=== PATIENT | female | born 1950 | race Caucasian/White ===

== ENCOUNTER 2018-02-28 14:10 | Inpatient (IN) | payer MEDICARE ==
[~2018-02-28] VITALS: Ht 160 cm; Wt 67.8 kg
[2018-02-28] MEDS ORDERED: GABA-533 PO (14:37)
[2018-02-28] MEDS ORDERED: CIPR-278 PO (14:37)
[2018-02-28] MEDS ORDERED: ATEN50TA PO (14:37)
[2018-02-28 14:40] LABS: BASOPHILS % (AUTO) 0.9 % (0.0-2.0); EOSINOPHILS % (AUTO) 1.8 % (1.0-6.0); HEMATOCRIT 44.8 % (36-46); HEMOGLOBIN 15.7 g/dL (12.0-16.0); LYMPHOCYTES % (AUTO) 35.2 % (22.0-44.0); MEAN CORPUSCULAR HEMOGLOBIN 29.7 pg (26.0-34.0); MEAN CORPUSCULAR VOLUME 85 fL (80-100); MONOCYTES # (AUTO) 0.4 K/uL (0.1-1.0); NEUTROPHILS # (AUTO) 4.8 K/uL (1.8-7.7); NEUTROPHILS % (AUTO) 57.1 % (40.0-70.0); PLATELET COUNT (AUTO) 366 K/uL (150-450); RED BLOOD CELL COUNT(AUTO) 5.29 MIL/uL (4.00-5.20); RED CELL DISTRIBUTION WIDTH 15.1 % (11.5-14.5)
[2018-02-28 14:43] LABS: GLUCOSE,POINT OF CARE 178 MG/DL (70-110)
[2018-02-28 14:47] LABS: ANION GAP 12 mmol/L (8-16); CALCIUM, TOTAL 9.8 mg/dL (8.8-10.5); CARBON DIOXIDE 25 mmol/L (22-29); CHLORIDE 101 mmol/L (98-107); CREATININE 1.03 mg/dL (0.60-1.30); GLOMERULAR FILTR. RATE CALC 53 mL/min (>60); GLUCOSE,RANDOM 181 mg/dL (70-110); POTASSIUM 3.2 mmol/L (3.5-5.1); SODIUM SERUM 138 mmol/L (136-145); UREA NITROGEN, BLOOD 15 mg/dL (7-18)
[2018-02-28 15:02] LABS: ALANINE AMINOTRANSFERASE 43 U/L (12-78); ALBUMIN 4.5 g/dL (3.4-5.0); ALKALINE PHOSPHATASE 211 U/L (46-116); ASPARTATE AMINOTRANSFERASE 18 U/L (15-37); BILIRUBIN,TOTAL 0.6 mg/dL (0.1-1.0)
[2018-02-28] MEDS ORDERED: POTASSIUM CHLORIDE 20 MEQ ER TABLET PO ONE (17:45)
[2018-02-28] MEDS ORDERED: IBUPROFEN 800 MG TABLET PO ONE (17:45)
[2018-02-28] MEDS ORDERED: LORazepam 1 MG TABLET PO ONE (18:45)
[2018-02-28] MEDS ORDERED: ZOLPIDEM TARTRATE 10 MG TABLET PO PRN (19:15)
[2018-02-28] MEDS ORDERED: HALOPERIDOL 5 MG TABLET PO PRN (19:15)
[2018-02-28 19:41] LABS: CHOL/HDL RATIO 10.2 (3.9-5.7); CHOLESTEROL 367 mg/dL (131-200); HDL CHOLESTEROL 36 mg/dL (40-60); TRIGLYCERIDES 545 mg/dL (15-150)
[2018-02-28 20:57] LABS: APPEARANCE,URINE CLOUDY (CLEAR); BILIRUBIN,URINE NEGATIVE (NEGATIVE); GLUCOSE, URINE (UA) 500 mg/dL (NEGATIVE); KETONES,URINE NEGATIVE (NEGATIVE); LEUKOCYTE ESTERASE ,URINE MODERATE (NEGATIVE); OCCULT BLOOD,URINE TRACE (NEGATIVE); PROTEIN,URINE NEGATIVE (NEGATIVE); UROBILINOGEN,URINE 0.2 mg/dL (<=1.0)
[2018-02-28 21:01] LABS: AMPHET/METH SCREEN,URINE NEGATIVE (NEGATIVE); BARBITURATE SCREEN, URINE NEGATIVE (NEGATIVE); BENZODIAZEPINES SCREEN,URINE POSITIVE (NEGATIVE); CANNABINOID SCREEN,URINE POSITIVE (NEGATIVE); COCAINE SCREEN,URINE NEGATIVE (NEGATIVE); METHADONE SCREEN, URINE NEGATIVE (NEGATIVE); OPIATE SCREEN,URINE NEGATIVE (NEGATIVE)
[2018-02-28 21:03] LABS: BACTERIA,URINE Few /HPF (None Seen); NITRATE,URINE NEGATIVE (NEGATIVE); SQUAMOUS EPITHELIAL CELL,UR Moderate /LPF (None Seen); WBC,URINE 26-50 /HPF (0-5)
[2018-02-28 21:04] LABS: PHENCYCLIDINE SCREEN,URINE NEGATIVE (NEGATIVE)
[2018-02-28 22:25] VITALS: BP 129/84
[2018-02-28] MEDS ORDERED: PNEUMOCOCCAL VACCINE POLYVALENT 0.5 ML VIAL [PPSV23] IM ONE (22:30)
[2018-02-28 22:40] LABS: GLUCOMETER DEV NAME(LOC) BV2N3; GLUCOSE,POINT OF CARE 222 MG/DL (70-110)
[2018-03-01] VITALS (17 sets, daily range): BP systolic 128–186; BP diastolic 68–104
[2018-03-01] MEDS: LORazepam 2 MG TABLET PO PRN ×2 (03:21→08:18)
[2018-03-01 06:17] LABS: GLUCOMETER DEV NAME(LOC) BV2N3; GLUCOSE,POINT OF CARE 189 MG/DL (70-110)
[2018-03-01] MEDS ORDERED: GLUCAGON,HUMAN RECOMBINANT 1 MG VIAL IM PRN (06:30)
[2018-03-01] MEDS: INSULIN LISPRO 100 UNITS/ML SQ PRN ×3 (07:01→20:54)
[2018-03-01 08:17] LABS: HEMOGLOBIN A1C 7.7 % (4.5-6.2)
[2018-03-01] MEDS: CIPROFLOXACIN HCL 500 MG TABLET PO SCH ×2 (08:18→17:00)
[2018-03-01 08:22] LABS: ALANINE AMINOTRANSFERASE 34 U/L (12-78); ALBUMIN 3.5 g/dL (3.4-5.0); ALKALINE PHOSPHATASE 170 U/L (46-116); ANION GAP 9 mmol/L (8-16); ASPARTATE AMINOTRANSFERASE 22 U/L (15-37); BILIRUBIN,TOTAL 0.5 mg/dL (0.1-1.0); CALCIUM, TOTAL 8.8 mg/dL (8.8-10.5); CARBON DIOXIDE 25 mmol/L (22-29); CHLORIDE 108 mmol/L (98-107); CREATININE 0.89 mg/dL (0.60-1.30); GLOMERULAR FILTR. RATE CALC > 60 mL/min (>60); GLUCOSE,RANDOM 179 mg/dL (70-110); SODIUM SERUM 142 mmol/L (136-145); TOTAL PROTEIN, SERUM 7.1 g/dL (6.4-8.2); UREA NITROGEN, BLOOD 12 mg/dL (7-18)
[2018-03-01] MEDS ORDERED: METOPROLOL TARTRATE 25 MG TABLET PO SCH (09:00)
[2018-03-01] MEDS ORDERED: ACETAMINOPHEN 325 MG TABLET PO PRN (09:15)
[2018-03-01] MEDS: IBUPROFEN 600 MG TABLET PO PRN ×2 (09:32→19:05)
[2018-03-01] MEDS: CloNIDine HCL 0.1 MG TABLET PO PRN ×2 (09:32→20:45)
[2018-03-01 11:33] LABS: GLUCOMETER DEV NAME(LOC) BV2N3; GLUCOSE,POINT OF CARE 182 MG/DL (70-110)
[2018-03-01] MEDS: GEMFIBROZIL 600 MG TABLET PO SCH ×2 (16:30→19:04)
[2018-03-01] MEDS: METOPROLOL TARTRATE 50 MG TABLET PO SCH ×2 (17:00→19:05)
[2018-03-01] MEDS: MetFORMIN HCL 500 MG TABLET PO SCH ×2 (17:00→19:04)
[2018-03-01 20:38] LABS: GLUCOMETER DEV NAME(LOC) BV2N3; GLUCOSE,POINT OF CARE 144 MG/DL (70-110)
[2018-03-01] MEDS: GABAPENTIN 300 MG CAPSULE PO SCH (20:46)
[2018-03-02 05:55] VITALS: BP 126/72
[2018-03-02] MEDS: GEMFIBROZIL 600 MG TABLET PO SCH ×2 (05:59→16:31)
[2018-03-02] MEDS: TraMADol HCL 50 MG TABLET PO PRN ×2 (06:00→19:08)
[2018-03-02 06:23] LABS: GLUCOMETER DEV NAME(LOC) BV2N3; GLUCOSE,POINT OF CARE 182 MG/DL (70-110)
[2018-03-02] MEDS: MetFORMIN HCL 500 MG TABLET PO SCH ×2 (06:40→16:31)
[2018-03-02 08:15] VITALS: BP 140/83
[2018-03-02] MEDS: CIPROFLOXACIN HCL 500 MG TABLET PO SCH ×2 (08:16→08:30)
[2018-03-02] MEDS: IBUPROFEN 600 MG TABLET PO PRN (08:16)
[2018-03-02] MEDS: ESCITALOPRAM OXALATE 10 MG TABLET PO SCH (08:16)
[2018-03-02] MEDS: GABAPENTIN 300 MG CAPSULE PO SCH ×3 (08:16→16:31)
[2018-03-02] MEDS: METOPROLOL TARTRATE 50 MG TABLET PO SCH ×2 (08:16→16:31)
[2018-03-02] MEDS ORDERED: ONDANSETRON HCL 4 MG/2 ML VIAL IM PRN (08:45)
[2018-03-02] MEDS: LOPERAMIDE HCL 2 MG CAPSULE PO PRN ×3 (09:40→22:52)
[2018-03-02] MEDS: NITROFURANTOIN/NITROFURAN MAC 100 MG CAPSULE [MACROBID] PO SCH ×2 (09:40→16:31)
[2018-03-02] MEDS: INSULIN LISPRO 100 UNITS/ML SQ PRN ×3 (11:12→21:09)
[2018-03-02 11:18] LABS: GLUCOMETER DEV NAME(LOC) BV2N3; GLUCOSE,POINT OF CARE 214 MG/DL (70-110)
[2018-03-02 16:05] VITALS: BP 132/72
[2018-03-02 16:39] LABS: GLUCOMETER DEV NAME(LOC) BV2N3; GLUCOSE,POINT OF CARE 177 MG/DL (70-110)
[2018-03-02 19:09] VITALS: BP 142/67
[2018-03-02 21:04] LABS: GLUCOMETER DEV NAME(LOC) BV2N3; GLUCOSE,POINT OF CARE 143 MG/DL (70-110)
[2018-03-03 06:34] LABS: GLUCOMETER DEV NAME(LOC) BV2N3; GLUCOSE,POINT OF CARE 126 MG/DL (70-110)
[2018-03-03] MEDS: TraMADol HCL 50 MG TABLET PO PRN ×2 (06:46→14:33)
[2018-03-03 07:00] VITALS: BP 128/84
[2018-03-03] MEDS: MetFORMIN HCL 500 MG TABLET PO SCH ×2 (07:13→17:15)
[2018-03-03] MEDS: GEMFIBROZIL 600 MG TABLET PO SCH ×2 (07:13→16:33)
[2018-03-03] MEDS: GABAPENTIN 300 MG CAPSULE PO SCH ×3 (08:15→17:16)
[2018-03-03] MEDS: METOPROLOL TARTRATE 50 MG TABLET PO SCH ×2 (08:15→17:15)
[2018-03-03] MEDS: NITROFURANTOIN/NITROFURAN MAC 100 MG CAPSULE [MACROBID] PO SCH ×2 (08:15→17:16)
[2018-03-03] MEDS: ESCITALOPRAM OXALATE 10 MG TABLET PO SCH (08:15)
[2018-03-03 08:27] VITALS: BP 147/80
[2018-03-03] MEDS: DENTURE ADHESIVE 68 GM CREAM DT PRN (10:53)
[2018-03-03 11:28] LABS: GLUCOMETER DEV NAME(LOC) BV2N3; GLUCOSE,POINT OF CARE 180 MG/DL (70-110)
[2018-03-03] MEDS: INSULIN LISPRO 100 UNITS/ML SQ PRN ×3 (11:28→20:15)
[2018-03-03 14:33] VITALS: BP 135/72
[2018-03-03 16:06] VITALS: BP 128/78
[2018-03-03 16:37] LABS: GLUCOMETER DEV NAME(LOC) BV2N3; GLUCOSE,POINT OF CARE 163 MG/DL (70-110)
[2018-03-03 20:11] VITALS: BP 124/74
[2018-03-03] MEDS: IBUPROFEN 600 MG TABLET PO PRN (20:11)
[2018-03-03 21:03] LABS: GLUCOMETER DEV NAME(LOC) BV2N3; GLUCOSE,POINT OF CARE 146 MG/DL (70-110)
[2018-03-04 06:09] VITALS: BP 138/75
[2018-03-04 06:17] LABS: GLUCOMETER DEV NAME(LOC) BV2N3; GLUCOSE,POINT OF CARE 142 MG/DL (70-110)
[2018-03-04] MEDS: INSULIN LISPRO 100 UNITS/ML SQ PRN ×3 (06:42→20:50)
[2018-03-04] MEDS: MetFORMIN HCL 500 MG TABLET PO SCH ×2 (06:47→17:25)
[2018-03-04] MEDS: GEMFIBROZIL 600 MG TABLET PO SCH ×2 (06:47→17:24)
[2018-03-04 08:07] VITALS: BP 118/64
[2018-03-04] MEDS: NITROFURANTOIN/NITROFURAN MAC 100 MG CAPSULE [MACROBID] PO SCH ×2 (08:07→17:25)
[2018-03-04] MEDS: ESCITALOPRAM OXALATE 10 MG TABLET PO SCH (08:07)
[2018-03-04] MEDS: TraMADol HCL 50 MG TABLET PO PRN ×2 (08:07→17:26)
[2018-03-04] MEDS: METOPROLOL TARTRATE 50 MG TABLET PO SCH ×2 (08:07→17:24)
[2018-03-04] MEDS: GABAPENTIN 300 MG CAPSULE PO SCH ×3 (08:07→16:48)
[2018-03-04 11:12] LABS: GLUCOMETER DEV NAME(LOC) BV2N3; GLUCOSE,POINT OF CARE 149 MG/DL (70-110)
[2018-03-04 13:23] VITALS: BP 124/68
[2018-03-04] MEDS: IBUPROFEN 600 MG TABLET PO PRN (13:23)
[2018-03-04 16:06] VITALS: BP 120/87
[2018-03-04 16:28] LABS: GLUCOMETER DEV NAME(LOC) BV2N3; GLUCOSE,POINT OF CARE 173 MG/DL (70-110)
[2018-03-04 17:27] VITALS: BP 175/88
[2018-03-04 18:26] VITALS: BP 142/64
[2018-03-04 20:58] LABS: GLUCOMETER DEV NAME(LOC) BV2N3; GLUCOSE,POINT OF CARE 141 MG/DL (70-110)
[2018-03-05 00:38] VITALS: BP 137/91
[2018-03-05 06:18] LABS: GLUCOMETER DEV NAME(LOC) BV2N3; GLUCOSE,POINT OF CARE 134 MG/DL (70-110)
[2018-03-05] MEDS: GEMFIBROZIL 600 MG TABLET PO SCH ×2 (06:23→16:24)
[2018-03-05] MEDS: MetFORMIN HCL 500 MG TABLET PO SCH ×2 (07:17→16:29)
[2018-03-05 08:15] VITALS: BP 167/88
[2018-03-05] MEDS: NITROFURANTOIN/NITROFURAN MAC 100 MG CAPSULE [MACROBID] PO SCH ×2 (08:19→16:24)
[2018-03-05] MEDS: ESCITALOPRAM OXALATE 10 MG TABLET PO SCH (08:19)
[2018-03-05] MEDS: METOPROLOL TARTRATE 50 MG TABLET PO SCH ×2 (08:19→16:25)
[2018-03-05] MEDS: GABAPENTIN 300 MG CAPSULE PO SCH ×3 (08:19→16:25)
[2018-03-05] MEDS: TraMADol HCL 50 MG TABLET PO PRN ×2 (08:47→16:25)
[2018-03-05 09:55] VITALS: BP 161/86
[2018-03-05] MEDS: CloNIDine HCL 0.1 MG TABLET PO PRN (09:56)
[2018-03-05 11:00] VITALS: BP 116/62
[2018-03-05] MEDS: INSULIN LISPRO 100 UNITS/ML SQ PRN ×2 (11:05→20:15)
[2018-03-05 11:13] LABS: GLUCOMETER DEV NAME(LOC) BV2N3; GLUCOSE,POINT OF CARE 160 MG/DL (70-110)
[2018-03-05 16:09] VITALS: BP 133/79
[2018-03-05 16:38] LABS: GLUCOMETER DEV NAME(LOC) BV2N3; GLUCOSE,POINT OF CARE 134 MG/DL (70-110)
[2018-03-05] MEDS: HydrOXYzine PAMOATE 25 MG CAPSULE PO PRN (20:14)
[2018-03-05 20:38] LABS: GLUCOMETER DEV NAME(LOC) BV2N3; GLUCOSE,POINT OF CARE 151 MG/DL (70-110)
[2018-03-06 06:18] LABS: GLUCOMETER DEV NAME(LOC) BV2N3; GLUCOSE,POINT OF CARE 155 MG/DL (70-110)
[2018-03-06 06:24] VITALS: BP 132/65
[2018-03-06] MEDS: GEMFIBROZIL 600 MG TABLET PO SCH ×2 (06:26→16:13)
[2018-03-06] MEDS: MetFORMIN HCL 500 MG TABLET PO SCH ×2 (06:27→17:26)
[2018-03-06] MEDS: INSULIN LISPRO 100 UNITS/ML SQ PRN ×4 (06:37→20:14)
[2018-03-06] MEDS: TraMADol HCL 50 MG TABLET PO PRN ×3 (06:48→22:16)
[2018-03-06] MEDS: NITROFURANTOIN/NITROFURAN MAC 100 MG CAPSULE [MACROBID] PO SCH ×2 (08:15→16:12)
[2018-03-06] MEDS: METOPROLOL TARTRATE 50 MG TABLET PO SCH ×2 (08:15→16:12)
[2018-03-06] MEDS: ESCITALOPRAM OXALATE 10 MG TABLET PO SCH (08:16)
[2018-03-06] MEDS: GABAPENTIN 300 MG CAPSULE PO SCH ×3 (08:16→16:12)
[2018-03-06 08:32] VITALS: BP 142/65
[2018-03-06] MEDS: DENTURE ADHESIVE 68 GM CREAM DT PRN (09:12)
[2018-03-06 11:18] LABS: GLUCOMETER DEV NAME(LOC) BV2N3; GLUCOSE,POINT OF CARE 176 MG/DL (70-110)
[2018-03-06 16:00] VITALS: BP 143/72
[2018-03-06 16:39] LABS: GLUCOMETER DEV NAME(LOC) BV2N3; GLUCOSE,POINT OF CARE 186 MG/DL (70-110)
[2018-03-06] MEDS: HydrOXYzine PAMOATE 25 MG CAPSULE PO PRN (20:12)
[2018-03-06 21:13] LABS: GLUCOMETER DEV NAME(LOC) BV2N3; GLUCOSE,POINT OF CARE 178 MG/DL (70-110)
[2018-03-06 22:18] VITALS: BP 153/74
[2018-03-07] VITALS (7 sets, daily range): BP systolic 131–153; BP diastolic 72–88
[2018-03-07] MEDS: IBUPROFEN 600 MG TABLET PO PRN (01:51)
[2018-03-07 05:58] LABS: GLUCOMETER DEV NAME(LOC) BV2N3; GLUCOSE,POINT OF CARE 146 MG/DL (70-110)
[2018-03-07] MEDS: MetFORMIN HCL 500 MG TABLET PO SCH ×2 (06:09→17:06)
[2018-03-07] MEDS: GEMFIBROZIL 600 MG TABLET PO SCH ×2 (06:09→16:33)
[2018-03-07] MEDS: INSULIN LISPRO 100 UNITS/ML SQ PRN ×4 (06:10→20:52)
[2018-03-07] MEDS: TraMADol HCL 50 MG TABLET PO PRN ×3 (06:27→21:11)
[2018-03-07] MEDS: METOPROLOL TARTRATE 50 MG TABLET PO SCH ×2 (08:28→16:33)
[2018-03-07] MEDS: ESCITALOPRAM OXALATE 10 MG TABLET PO SCH (08:28)
[2018-03-07] MEDS: GABAPENTIN 300 MG CAPSULE PO SCH ×3 (08:29→16:33)
[2018-03-07] MEDS: DENTURE ADHESIVE 68 GM CREAM DT PRN (09:01)
[2018-03-07 11:17] LABS: GLUCOMETER DEV NAME(LOC) BV2N3; GLUCOSE,POINT OF CARE 255 MG/DL (70-110)
[2018-03-07] MEDS: PHENAZOPYRIDINE HCL 100 MG TABLET PO SCH ×2 (13:15→17:06)
[2018-03-07 16:12] LABS: GLUCOMETER DEV NAME(LOC) BV2N3; GLUCOSE,POINT OF CARE 153 MG/DL (70-110)
[2018-03-07] MEDS: SULFAMETHOX/TRIMETH DS 800-160 MG/TABLET PO SCH (16:33)
[2018-03-07 20:22] LABS: GLUCOMETER DEV NAME(LOC) BV2N3; GLUCOSE,POINT OF CARE 150 MG/DL (70-110)
[2018-03-08 02:08] VITALS: BP 133/66
[2018-03-08 06:13] LABS: GLUCOMETER DEV NAME(LOC) BV2N3; GLUCOSE,POINT OF CARE 129 MG/DL (70-110)
[2018-03-08] MEDS: MetFORMIN HCL 500 MG TABLET PO SCH ×2 (06:34→16:44)
[2018-03-08] MEDS: GEMFIBROZIL 600 MG TABLET PO SCH ×2 (06:34→16:44)
[2018-03-08] MEDS: PHENAZOPYRIDINE HCL 100 MG TABLET PO SCH ×3 (08:01→16:43)
[2018-03-08] MEDS: HYDROCHLOROTHIAZIDE 25 MG TABLET PO SCH (08:01)
[2018-03-08] MEDS: SULFAMETHOX/TRIMETH DS 800-160 MG/TABLET PO SCH ×2 (08:01→16:44)
[2018-03-08] MEDS: METOPROLOL TARTRATE 50 MG TABLET PO SCH ×2 (08:01→16:44)
[2018-03-08] MEDS: ESCITALOPRAM OXALATE 10 MG TABLET PO SCH (08:01)
[2018-03-08] MEDS: GABAPENTIN 300 MG CAPSULE PO SCH ×3 (08:01→16:45)
[2018-03-08 08:02] VITALS: BP 146/78
[2018-03-08] MEDS: TraMADol HCL 50 MG TABLET PO PRN ×2 (08:02→16:44)
[2018-03-08] MEDS: DENTURE ADHESIVE 68 GM CREAM DT PRN (09:43)
[2018-03-08 11:03] LABS: GLUCOMETER DEV NAME(LOC) BV2N3; GLUCOSE,POINT OF CARE 139 MG/DL (70-110)
[2018-03-08] MEDS: INSULIN LISPRO 100 UNITS/ML SQ PRN ×2 (16:47→20:44)
[2018-03-08 16:50] VITALS: BP 163/91
[2018-03-08 17:13] LABS: GLUCOMETER DEV NAME(LOC) BV2N3; GLUCOSE,POINT OF CARE 149 MG/DL (70-110)
[2018-03-08 18:37] VITALS: BP 126/63
[2018-03-08 20:28] LABS: GLUCOMETER DEV NAME(LOC) BV2N3; GLUCOSE,POINT OF CARE 194 MG/DL (70-110)
[2018-03-08] MEDS: HydrOXYzine PAMOATE 25 MG CAPSULE PO PRN (21:12)
[2018-03-09 00:05] VITALS: BP 133/68
[2018-03-09] MEDS: TraMADol HCL 50 MG TABLET PO PRN ×3 (00:15→08:33)
[2018-03-09] MEDS ORDERED: ESCI10TA PO (03:45)
[2018-03-09] MEDS ORDERED: METO50 PO (03:45)
[2018-03-09] MEDS ORDERED: BACTDSB PO (03:45)
[2018-03-09] MEDS ORDERED: HYDR25TA PO (03:45)
[2018-03-09] MEDS ORDERED: METF500T6 PO (03:45)
[2018-03-09] MEDS ORDERED: GABA-531 PO (03:45)
[2018-03-09] MEDS ORDERED: PHEN-934 PO (03:45)
[2018-03-09] MEDS ORDERED: GEMF600T3 PO (03:45)
[2018-03-09] MEDS: GEMFIBROZIL 600 MG TABLET PO SCH (06:26)
[2018-03-09 06:43] LABS: GLUCOMETER DEV NAME(LOC) BV2N3; GLUCOSE,POINT OF CARE 151 MG/DL (70-110)
[2018-03-09] MEDS: INSULIN LISPRO 100 UNITS/ML SQ PRN ×2 (06:55→11:14)
[2018-03-09] MEDS: MetFORMIN HCL 500 MG TABLET PO SCH (07:04)
[2018-03-09] MEDS: METOPROLOL TARTRATE 50 MG TABLET PO SCH (08:30)
[2018-03-09] MEDS: ESCITALOPRAM OXALATE 10 MG TABLET PO SCH (08:30)
[2018-03-09] MEDS: SULFAMETHOX/TRIMETH DS 800-160 MG/TABLET PO SCH (08:30)
[2018-03-09] MEDS: HYDROCHLOROTHIAZIDE 25 MG TABLET PO SCH (08:30)
[2018-03-09] MEDS: PHENAZOPYRIDINE HCL 100 MG TABLET PO SCH (08:30)
[2018-03-09] MEDS: GABAPENTIN 300 MG CAPSULE PO SCH ×2 (08:31→12:40)
[2018-03-09] MEDS: DENTURE ADHESIVE 68 GM CREAM DT PRN (08:32)
[2018-03-09 08:33] VITALS: BP 148/77
[2018-03-09 11:19] LABS: GLUCOMETER DEV NAME(LOC) BV2N3; GLUCOSE,POINT OF CARE 148 MG/DL (70-110)
== END 2018-03-09 13:23 | disposition home or self-care (01) | DRG 885 ==
LOC: EMS 14:11 → B2X 19:30
DX: F33.2 Major depressive disorder, recurrent severe without psychotic features (principal); N39.0 Urinary tract infection, site not specified; R45.851 Suicidal ideations; E11.40 Type 2 diabetes mellitus with diabetic neuropathy, unspecified; E78.1 Pure hyperglyceridemia; E78.5 Hyperlipidemia, unspecified; E87.6 Hypokalemia; F03.90 Unspecified dementia, unspecified severity, without behavioral disturbance, psychotic disturbance, mood disturbance, and anxiety; F12.10 Cannabis abuse, uncomplicated; F09 Unspecified mental disorder due to known physiological condition; F41.9 Anxiety disorder, unspecified; R19.7 Diarrhea, unspecified; G89.29 Other chronic pain; I10 Essential (primary) hypertension; M19.90 Unspecified osteoarthritis, unspecified site; M48.00 Spinal stenosis, site unspecified; Z91.19 Patient's noncompliance with other medical treatment and regimen; Z59.0 Homelessness; Z88.8 Allergy status to other drugs, medicaments and biological substances; Z79.899 Other long term (current) drug therapy; Z87.891 Personal history of nicotine dependence; Z91.410 Personal history of adult physical and sexual abuse; Z82.1 Family history of blindness and visual loss; Z82.49 Family history of ischemic heart disease and other diseases of the circulatory system; Z28.21 Immunization not carried out because of patient refusal
CPT/HCPCS: 83036; 84443; 87086; 99285; G0480; J2405